=== PATIENT | female | born 1990 | race Native Hawaiian/Other Pacific Islander ===

== ENCOUNTER 2018-08-12 10:20 | Emergency (ER) | payer BC ==
[2018-08-12 10:20] VITALS: BMI 21.6
--- NOTE | 2018-08-12 12:12 | ED PDOC ---
HPI: General Adult Time Seen by Provider: 08/12/18 10:35 Chief Complaint (Nursing): Fever Chief Complaint (Provider): Fever History Per: Patient History/Exam Limitations: no limitations Onset/Duration Of Symptoms: Days (1) Current Symptoms Are (Timing): Still Present Additional Complaint(s): 27 year old female presents to the ED for an evaluation of fever with TMAX of 103F since yesterday. Patient last took Advil at 09:30AM and currently has body ache. Her significant other is diagnosed with flu recently. PMD: Non [facility] Provider Past Medical History Reviewed: Historical Data, Nursing Documentation, Vital Signs Vital Signs: Last Vital Signs Temp 100.1 F H 08/12/18 10:23 Pulse 110 H 08/12/18 10:23 Resp 14 08/12/18 10:23 BP 95/65 L 08/12/18 10:23 Pulse Ox 96 08/12/18 10:23 - Medical History PMH: No Chronic Diseases - Family History Family History: States: Unknown Family Hx - Social History Current smoker - smoking cessation education provided: No Alcohol: None Drugs: Denies - Home Medications Home Medications: Ambulatory Orders Medication Instructions Recorded Pnv No.95/Ferrous Fum/Folic AC 1 tab PO DAILY 05/27/16 [ Vitamins Tablet] Ibuprofen [Motrin] 600 mg PO Q6H PRN #30 tab 05/29/16 Acetaminophen [Tylenol 325mg tab] 2 tab PO Q4H PRN #20 tab 08/12/18 Ibuprofen [Motrin] 600 mg PO Q6H PRN #20 tab 08/12/18 Oseltamivir Cap [Tamiflu] 75 mg PO BID #9 cap 08/12/18 - Allergies Allergies/Adverse Reactions: Allergies Allergy/AdvReac Type Severity Reaction Status Date / Time No Known Allergies Allergy Verified 05/27/16 00:49 Review of Systems ROS Statement: Except As Marked, All Systems Reviewed And Found Negative Constitutional: Positive for: Fever, Other (body ache) Physical Exam - Reviewed Nursing Documentation Reviewed: Yes Vital Signs Reviewed: Yes - Physical Exam Appears: Positive for: Well, Non-toxic, No Acute Distress Head Exam: Positive for: ATRAUMATIC, NORMAL INSPECTION, NORMOCEPHALIC Skin: Positive for: Normal Color, Warm, Dry. Negative for: Rash Eye Exam: Positive for: EOMI, Normal appearance, PERRL ENT: Positive for: Normal ENT Inspection Neck: Positive for: Normal, Painless ROM, Supple. Negative for: Decreased ROM Cardiovascular/Chest: Positive for: Regular Rate, Rhythm. Negative for: Murmur Respiratory: Positive for: Normal Breath Sounds. Negative for: Decreased Breath Sounds, Respiratory Distress Gastrointestinal/Abdominal: Positive for: Normal Exam, Soft. Negative for: Tenderness Back: Positive for: Normal Inspection Extremity: Positive for: Normal ROM. Negative for: Tenderness, Pedal Edema, Deformity Neurologic/Psych: Positive for: Alert, Oriented (x3) - ECG O2 Sat by Pulse Oximetry: 96 (RA) Pulse Ox Interpretation: Normal Medical Decision Making Medical Decision Making: Time: 1125 Impression: viral syndrome, flu Plan: ED urine Tylenol 650mg Influenza A B Reevaluation Patients serology is negative for flu a/b Scribe Attestation: Documented by Fidencio Andujar, acting as a scribe for Vanessa Vargas MD. Provider Scribe Attestation: All medical record entries made by the Scribe were at my direction and pers onally dictated by me. I have reviewed the chart and agree that the record accurately reflects my personal performance of the history, physical exam, medical decision making, and the department course for this patient. I have also personally directed, reviewed, and agree with the discharge instructions and disposition. Disposition - Clinical Impression Clinical Impression: Influenza-like illness - Disposition Disposition: Routine/Home Disposition Time: 14:22 Condition: STABLE Additional Instructions: FOLLOW-UP WITH PMD WITHIN 2 DAYS FOR REEVALUATION. Prescriptions: Acetaminophen [Tylenol 325mg tab] 2 tab PO Q4H PRN #20 tab PRN Reason: Fever >100.4 F Ibuprofen [Motrin] 600 mg PO Q6H PRN #20 tab PRN Reason: Pain, Moderate (4-7) Oseltamivir Cap [Tamiflu] 75 mg PO BID #9 cap Instructions: Flu, Adult (DC) Forms: [facility] (Slovenian), [facility] ED School/Work Excuse
[2018-08-12 13:52] VITALS: TEMP 98.8
[2018-08-12 14:58] VITALS: BP 114/51; PULSE 77; RESP 18
[2018-08-14 15:22] VITALS: O2SAT 96
== END 2018-08-12 14:48 | disposition home or self-care (01) ==
LOC: H.ER 10:20
DX: J11.1 Influenza due to unidentified influenza virus with other respiratory manifestations (principal)

== ENCOUNTER 2018-08-17 02:09 | Emergency (ER) | payer BC ==
[2018-08-17 02:09] VITALS: BMI 21.6
[2018-08-17] MEDS ORDERED: Sodium Chloride 0.9% 1,000 ML IV STA (02:34)
[2018-08-17] MEDS ORDERED: Albuterol-Ipratrop 3 mg / 0.5 (3 ml) UD INH STA (02:34)
[2018-08-17] MEDS ORDERED: Promethazine/Cod 6.25mg-10mg/5ml Syr UD PO STA (02:36)
[2018-08-17] MEDS ORDERED: Albuterol-Ipratrop 3 mg / 0.5 (3 ml) UD ONE (02:41)
[2018-08-17] MEDS ORDERED: Promethazine/Cod 6.25mg-10mg/5ml Syr UD ONE (02:42)
--- NOTE | 2018-08-17 02:44 | ED PDOC ---
HPI: Influenza Time Seen by Provider: 08/17/18 02:27 Chief Complaint: Fever Chief Complaint (Provider): Flu-like symptoms History Per: Patient Exam Limitations: no limitations Onset/Duration Of Symptoms: Days (x1 week ) Additional complaint(s):: 27 y/o [place] female with no significant PMHx presents to the ED complaining of flu like symptoms onset x1 week ago. Patient reports she taking her last dose of Tamiflu due today. However, she has had persisting fever with Tmax of 104.2. Patient reports persistent dry cough along with chills and body aches. Patient took Ibuprofen with little relief. Past Medical History Reviewed: Historical Data, Nursing Documentation, Vital Signs Vital Signs: Last Vital Signs Temp 102.4 F H 08/17/18 02:22 Pulse 106 H 08/17/18 02:22 Resp 16 08/17/18 02:22 BP 113/66 08/17/18 02:22 Pulse Ox 98 08/17/18 02:22 - Medical History PMH: No Chronic Diseases - Surgical History Surgical History: No Surg Hx - Family History Family History: States: Unknown Family Hx - Social History Current smoker - smoking cessation education provided: No Alcohol: None Drugs: Denies - Home Medications Home Medications: Ambulatory Orders Medication Instructions Recorded Pnv No.95/Ferrous Fum/Folic AC 1 tab PO DAILY 05/27/16 [ Vitamins Tablet] Ibuprofen [Motrin] 600 mg PO Q6H PRN #30 tab 05/29/16 Acetaminophen [Tylenol 325mg tab] 2 tab PO Q4H PRN #20 tab 08/12/18 Ibuprofen [Motrin] 600 mg PO Q6H PRN #20 tab 08/12/18 Oseltamivir Cap [Tamiflu] 75 mg PO BID #9 cap 08/12/18 Benzonatate [Tessalon Perle] 100 mg PO TID PRN #15 capsule 08/17/18 levoFLOXacin [Levaquin] 500 mg PO DAILY #10 tab 08/17/18 - Allergies Allergies/Adverse Reactions: Allergies Allergy/AdvReac Type Severity Reaction Status Date / Time No Known Allergies Allergy Verified 05/27/16 00:49 Review of Systems ROS Statement: Except As Marked, All Systems Reviewed And Found Negative Constitutional: Positive for: Fever, Chills, Malaise (body aches) Respiratory: Positive for: Cough Physical Exam - Reviewed Nursing Documentation Reviewed: Yes Vital Signs Reviewed: Yes - Physical Exam Appears: Positive for: Non-toxic (febrile), Uncomfortable Head Exam: Positive for: ATRAUMATIC, NORMAL INSPECTION, NORMOCEPHALIC Skin: Positive for: Normal Color, Warm, DRY Eye Exam: Positive for: EOMI, Normal appearance, PERRL ENT: Positive for: Other (dry mucous membranes) Neck: Positive for: Normal, Painless ROM Cardiovascular/Chest: Positive for: Regular Rate, Rhythm, Tachycardia. Negative for: Murmur Respiratory: Positive for: Normal Breath Sounds. Negative for: Respiratory Distress Gastrointestinal/Abdominal: Positive for: Normal Exam, Soft. Negative for: Tenderness Extremity: Positive for: Normal ROM. Negative for: Pedal Edema, Deformity Neurologic/Psych: Positive for: Alert, Oriented. Negative for: Motor/Sensory Deficits Medical Decision Making Medical Decision Making: Time: 02:34 Initial Impression: 27 y/o with persistent fever and flu-like symptoms Initial Plan: * Labs * CXR4 04:12 CXR demonstrates right lower lobe infiltrate. Ordered Levaquin. 05:26 Patient reports improvement of symptoms. Labs reviewed show no clinically sig nificant abnormalities. Patient is appropriate per outpatient treatment with antibiotics. Stable for discharge diagnosis is pneumonia Scribe Attestation: Documented by Kb Ybarra acting as a scribe for Ant Dill MD. Provider Scribe Attestation: All medical record entries made by the Scribe were at my direction and personally dictated by me. I have reviewed the chart and agree that the record accurately reflects my personal performance of the history, physical exam, medical decision making, and the department course for this patient. I have also personally directed, reviewed, and agree with the discharge instructions and disposition. - Laboratory Results Result Diagrams: 08/17/18 03:20 08/17/18 03:20 - ECG O2 Sat by Pulse Oximetry: 98 Disposition - Clinical Impression Clinical Impression: Pneumonia - Disposition Referrals: [facility] [Outside] Disposition: Routine/Home Disposition Time: 05:26 Condition: STABLE Additional Instructions: MARIANNA LIZARRAGA, thank you for letting us take care of you today. Your provider was Ant Dill MD and you were treated for FEVER. The emergency medical care you received today was directed at your acute symptoms. If you were prescribed any medication, please fill it and take as directed. It may take several days for your symptoms to resolve. Return to the Emergency Department if your symptoms worsen, do not improve, or if you have any other problems. Please contact your doctor or call one of the physicians/clinics you have been referred to that are listed on the Patient Visit Information form that is included in your discharge packet. Bring any paperwork you were given at dischar ge with you along with any medications you are taking to your follow up visit. Our treatment cannot replace ongoing medical care by a primary care provider outside of the emergency department. Thank you for allowing the [facility] team to be part of your care today. If you had an X-Ray or CT scan: A Radiologist will review the ED reading if any change in treatment is needed we will contact you. If you had a blood, urine, or wound culture: It will take several days for the results, if any change in treatment is needed we will contact you. If you had an STI test: It will take 48 hours for the results. Please call after 1 week if you have not heard back. Prescriptions: Benzonatate [Tessalon Perle] 100 mg PO TID PRN #15 capsule PRN Reason: Cough levoFLOXacin [Levaquin] 500 mg PO DAILY #10 tab Instructions: Pneumonia in Adults Forms: [facility] (Macedonian)
[2018-08-17 03:43] LABS: BASO % 0.2 % (0.0-2.0); EOS % 1.1 % (0.0-4.0); HEMOGLOBIN 12.6 g/dL (12.0-16.0); LYMPH % 22.8 % (20.0-40.0); MEAN CELL VOLUME 84.4 fl (81.0-99.0); MEAN CORPUSCULAR HEMOGLOBIN 28.3 pg (27.0-31.0); MEAN CORPUSCULAR HGB CONC 33.6 g/dL (33.0-37.0); MEAN PLATELET VOLUME 7.6 fl (7.2-11.7); MONO # 0.3 K/uL (0.0-0.8); MONO % 6.8 % (0.0-10.0); NEUT % 69.1 % (50.0-75.0); NRBC % 0.1 % (0.0-0.0); RBC 4.46 Mil/uL (3.80-5.20); RED CELL DISTRIBUTION WIDTH 13.8 % (11.5-14.5); WHITE BLOOD COUNT 4.4 K/uL (4.8-10.8)
[2018-08-17 03:49] LABS: ALB/GLOB RATIO 1.1 (1.0-2.1); ALT/SGPT 43 U/L (9-52); AST/SGOT 41 U/L (14-36); BLOOD UREA NITROGEN 6 mg/dl (7-17); CALCIUM 8.9 mg/dL (8.4-10.2); GFR NON-AFRICAN AMERICAN > 60
[2018-08-17] MEDS ORDERED: levoFLOXacin 500 mg in D5W 500 MG/100 ML BAG IVPB STA (03:56)
[2018-08-17 04:19] LABS: SQUAMOUS EPITHIAL 7 /hpf (0-5); URINE BACTERIA RARE (<OCC); URINE BILIRUBIN NEGATIVE (NEGATIVE); URINE BLOOD MODERATE (NEGATIVE); URINE CLARITY SLIGHTY-CLOUDY (Clear); URINE COLOR YELLOW (YELLOW); URINE GLUCOSE (UA) NEG (NEGATIVE); URINE LEUKOCYTE ESTERASE MOD Leu/uL (Negative); URINE PROTEIN NEGATIVE (NEGATIVE); URINE UROBILINOGEN 0.2-1.0 mg/dL (0.2-1.0)
[2018-08-17] MEDS ORDERED: levoFLOXacin 500 mg in D5W 500 MG/100 ML BAG IVPB ONE (04:32)
[2018-08-17 05:39] VITALS: BP 83/47; PULSE 81; RESP 18; TEMP 99.8; O2SAT 96
--- NOTE | 2018-08-17 10:13 | CARD ---
APPROVED REPORT Date of service: 08/17/2018 EKG Measurement Heart [id number] <Conclusion> Normal sinus rhythm Rightward axis Borderline ECG
--- NOTE | 2018-08-17 10:44 | RAD ---
Date of service: 08/17/2018 HISTORY: cough COMPARISON: No prior. TECHNIQUE: Chest PA and lateral FINDINGS: LUNGS: Right lower lobe infiltrate. Probable small right pleural effusion. PLEURA: Small right pleural effusion. No pneumothorax. CARDIOVASCULAR: No aortic atherosclerotic calcification present. Normal cardiac size. No pulmonary vascular congestion. OSSEOUS STRUCTURES: No significant abnormalities. VISUALIZED UPPER ABDOMEN: Normal. OTHER FINDINGS: None. IMPRESSION: Right lower lobe pneumonia. Small right pleural effusion.
== END 2018-08-17 05:39 | disposition home or self-care (01) ==
LOC: H.ER 02:09
DX: J18.9 Pneumonia, unspecified organism (principal); R91.8 Other nonspecific abnormal finding of lung field
CPT/HCPCS: 71046; 80053; 81003; 81025; 83605; 85025; 87040; 87804; 93005; 94640; 96361; 96365; 99284; J7030